=== PATIENT | male | born 2000 | race Caucasian/White ===

== ENCOUNTER 2024-09-05 10:22 | Emergency (ER) | payer OTHER ==
[~2024-09-05] VITALS: Ht 175.3 cm; Wt 63.6 kg
[2024-09-05 10:36] VITALS: TEMP 99.2
[2024-09-05 10:47] LABS: BASOPHILS % (AUTO) 0.3 % (0.0-2.0); EOSINOPHILS % (AUTO) 0.1 % (1.0-6.0); HEMATOCRIT 45.5 % (41-53); HEMOGLOBIN 15.6 g/dL (13.5-17.5); LYMPHOCYTES # (AUTO) 1.4 K/uL (1.0-4.8); MEAN CORPUSCULAR HEMOGLOBIN 31.2 pg (26.0-34.0); MEAN CORPUSCULAR HGB CONC 34.4 G/dL (31.0-37.0); MEAN CORPUSCULAR VOLUME 91 fL (80-100); MONOCYTES # (AUTO) 0.6 K/uL (0.1-1.0); MONOCYTES % (AUTO) 6.7 % (2.0-9.0); NEUTROPHILS # (AUTO) 7.5 K/uL (1.8-7.7); NEUTROPHILS % (AUTO) 77.9 % (40.0-70.0); PLATELET COUNT (AUTO) 233 K/uL (150-450); RED BLOOD CELL COUNT(AUTO) 5.02 MIL/uL (4.50-5.90); RED CELL DISTRIBUTION WIDTH 12.8 % (11.5-14.5); WHITE BLOOD COUNT (AUTO) 9.7 K/uL (4.5-11.0)
[2024-09-05 11:03] LABS: ANION GAP 8 mmol/L (8-16); CARBON DIOXIDE 27 mmol/L (22-29); CHLORIDE 104 mmol/L (98-107); GLOMERULAR FILTR. RATE CALC > 60 mL/min (>60); GLUCOSE,RANDOM 106 mg/dL (70-110); POTASSIUM 3.6 mmol/L (3.5-5.1); SODIUM SERUM 139 mmol/L (136-145); UREA NITROGEN, BLOOD 12 mg/dL (7-18)
[2024-09-05 11:12] LABS: TROPONIN I-HIGH SENSITIVITY 6 ng/L (<76)
[2024-09-05 11:20] LABS: B-TYPE NATRIURETIC PEPTIDE 9 pg/mL (0-100)
[2024-09-05] MEDS: MORPHINE SULFATE 4 MG/ML SYRINGE IVP ONE (11:35)
[2024-09-05 11:47] LABS: ALANINE AMINOTRANSFERASE 19 U/L (12-78); ALBUMIN 3.9 g/dL (3.4-5.0); ALKALINE PHOSPHATASE 48 U/L (46-116); ASPARTATE AMINOTRANSFERASE 15 U/L (15-37); BILIRUBIN,TOTAL 0.8 mg/dL (0.1-1.0); CREATINE KINASE, TOTAL ONLY 86 U/L (39-308); TOTAL PROTEIN, SERUM 7.1 g/dL (6.4-8.2)
[2024-09-05 12:57] VITALS: BP 117/77; PULSE 110; RESP 18; O2SAT 100
[2024-09-05] MEDS: MORPHINE SULFATE 2 MG/ML SYRINGE IVP ONE (13:17)
[2024-09-05 13:21] LABS: TROPONIN I-HIGH SENSITIVITY 6 ng/L (<76)
== END 2024-09-05 13:33 | disposition admitted as inpatient to this hospital (09) ==
LOC: EMS 10:22
DX: R07.9 Chest pain, unspecified (principal); R05.9 Cough, unspecified
CPT/HCPCS: 99291; 93306; 96374; 71045; 80048; 80076; 82550; 83880; 84484; 85025; 36415; 93005; 96376; J2270 ×2